=== PATIENT | male | born 1970 | race Caucasian/White ===

== ENCOUNTER 2018-01-09 07:49 | Outpatient (CLI) | payer OTHER | END 2018-01-09 07:50 | disposition home or self-care (01) | LOC: BICRAD 07:49 | PROVIDERS: ATTEND Nurse Practitioner Family | DX: M25.522 Pain in left elbow (principal) ==

== ENCOUNTER 2020-05-12 13:42 | Outpatient (CLI) | payer BC, OTHER ==
--- NOTE | 2020-05-12 15:12 | MRI ---
Exam: MRI cervical spine without contrast HISTORY: Chronic neck pain.. COMPARISON: None FINDINGS: There is straightening of cervical lordosis which is presumed to be positional. There is no signific ant STIR hyperintensity to suggest ligamentous injury or vertebral body edema. There is overall appropriate T1 marrow signal intensity of the cervical vertebra. Vertebral body heights are maintaine d. No fracture. Visualized brain parenchyma, cervicomedullary junction, cervical cord and the upper thoracic cord have normal size and signal intensity. C2-C3: Central disc herniation abuts the thecal sac. Mild central canal stenosis. Patent bilateral ne ural foramina C3-C4: Broad-based disc bulge with a central disc herniation. Central midline subarachnoid space is e ffaced. Is contact upon the midline cord. Mild central canal stenosis. No cord signal abnormality. Mild right neural foraminal narrowing due to uncal vertebral hypertrophy. Patent left neural foramen C4-C5: Mild loss of disc space height. Broad-based disc osteophyte complex effaces the right subarac hnoid space. Minimal contact upon the right hemicord, without cord signal abnormality. Mild bilateral neural foraminal narrowing due to uncovertebral hypertrophy. C5-C6: Broad-based disc osteophyte complex. Mild central canal stenosis. Moderate moderate right and [id number] left neural foraminal narrowing C6-C7: Discussed by complex abuts the thecal sac. Flattening of the cervical cord without cord signal abnormality. Mild to moderate central canal stenosis. Moderate bilateral neural foraminal narrowing due to uncovertebral hypertrophy. C7-T1: No significant central canal stenosis or significant neural foraminal narrowing IMPRESSION: Multilevel degenerative changes of the cervical spine as above Transcribed Date/Time: 05/12/2020 3:16 PM
== END 2020-05-12 13:43 | disposition home or self-care (01) ==
LOC: TBSIIMAG 13:42
PROVIDERS: ATTEND Nurse Practitioner Family
DX: M47.812 Spondylosis without myelopathy or radiculopathy, cervical region (principal)
CPT/HCPCS: 72141

== ENCOUNTER 2024-04-16 18:21 | Emergency (ER) | payer OTHER, BC ==
[2024-04-16 19:42] LABS: #Basophils 0.06 10x3/uL (0.0-0.2); %Basophils 0.8 % (0.0-1.0); %Eosinophils 2.6 % (0.0-10.0); %Lymphocytes 25.4 % (21.0-51.0); %Monocytes 13.3 % (0.0-10.0); %Neutrophils 57.8 % (42.0-75.0); Hematocrit 45.2 % (42.0-52.0); Hemoglobin 15.5 g/dL (14.0-18.0); Mean Corpuscular HGB CONC 34.3 g/dL (32.0-36.0); Mean Corpuscular Hemoglobin 35.1 pg (27.0-31.0); Mean Corpuscular Volume 102.5 fL (78.0-98.0); Platelet Count 225 10x3/uL (130-400); RBC Distribution Width 11.8 % (11.5-14.5); Red Blood Cell (RBC) Count 4.41 mill/uL (4.70-6.10)
[2024-04-16 20:01] LABS: ALT (SGPT) 106 U/L (8-55); AST (SGOT) 108 U/L (5-34); Albumin 4.1 g/dL (3.5-5.0); Alkaline Phosphatase 70 U/L (40-110); Anion Gap 12 mmol/L (10-20); BUN (Urea Nitrogen) 10 mg/dL (8.4-25.7); Bilirubin, Total 0.4 mg/dL (0.2-1.2); Calc. Creatinine Clearance 0 mL/min (70-130); Calcium 9.2 mg/dL (7.8-10.44); Carbon Dioxide 28 mmol/L (22-29); Chloride 105 mmol/L (98-107); Estimated GFR 85; Globulin 3.6 g/dL (2.4-3.5); Glucose 95 mg/dL (70-105); Potassium 3.9 mmol/L (3.5-5.1); Protein, Total 7.7 g/dL (6.0-8.3); Sodium 141 mmol/L (136-145)
[2024-04-16 20:04] LABS: Troponin I Less than 0.010 ng/mL (< 0.028)
[2024-04-16 22:13] LABS: Troponin I 0.013 ng/mL (< 0.028)
== END 2024-04-16 22:40 | disposition home or self-care (01) ==
LOC: ERS 18:21
DX: R74.01 Elevation of levels of liver transaminase levels (principal); R01.1 Cardiac murmur, unspecified; F17.290 Nicotine dependence, other tobacco product, uncomplicated
CPT/HCPCS: 36415; 71045; 80053; 84484; 85025; 93005